=== PATIENT | male | born 1975 | race Caucasian/White ===

== ENCOUNTER 2018-05-27 08:28 | Emergency (ER) | payer BC ==
[~2018-05-27] VITALS: Ht 177.8 cm; Wt 93.6 kg
[~2018-05-27 08:28] MED LIST: AZIT250T PO; BENZ-6 PO; IBUP-1542 PO
[2018-05-27 08:38] VITALS: Ht 177.8 cm; Wt 93.6 kg
[2018-05-27] MEDS ORDERED: NITROGLYCERIN 2% 1 GM OINT PKT TD STA (09:49)
[2018-05-27] MEDS ORDERED: ASPI81TA52 PO (10:21)
--- NOTE | 2018-05-27 10:32 | ERD ---
ER Documentation Chief Complaint Chief Complaint Complains of chest pain since this am HPI This a 42-year-old male with a history of prediabetes who is had 1 month of chest pain. He initially described the chest pain as a central left sharp and then will become a squeezing type feeling that would last about 10 seconds and go away. He saw his primary care physician who arranged cardiology follow-up however he still waiting for authorization. The patient is here because he said the chest pain is getting more frequent and stronger. He says over the past 2 days happening for 5 times a day described as initial sharp pain and it becomes a squeezing-like pain with very slight shortness of breath. He has no nausea no diaphoresis, the pain will occur at rest. Denies family history of heart disease. Denies smoking. ROS All systems reviewed and are negative except as per history of present illness. Medications Home Meds Reported Medications Aspirin (Low Dose Aspirin) 81 Mg Tablet.dr, 81 MG PO DAILY, #30 TAB 05/27/18 Discontinued Reported Medications [none] No Conflict Check 02/18/10 Discontinued Scripts Benzonatate* (Tessalon Perle*) 100 Mg Capsule, 100 MG PO Q8H PRN for COUGH, #20 CAP Prov:PATRICK GLOVER PA-C 10/19/16 Ibuprofen* (Motrin*) 600 Mg Tab, 600 MG PO Q6, #30 TAB Prov:PATRICK GLOVER PA-C 10/19/16 Azithromycin* (Zithromax*) 250 Mg Tablet, 250 MG PO .ZPACK DIRECTED, #6 TAB TAKE 500 MG (2 TABS) THE FIRST DAY THEN 250 MG (1 TAB) DAYS 2-5 Prov:PATRICK GLOVER PA-C 10/19/16 Allergies Allergies: Coded Allergies: No Known Allergies (Verified Allergy, Mild, 05/27/18) PMhx/Soc Medical and Surgical Hx: pt denies Medical Hx, pt denies Surgical Hx History of Surgery: No Anesthesia Reaction: No Hx Neurological Disorder: No Hx Respiratory Disorders: No Hx Cardiac Disorders: No Hx Psychiatric Problems: No Hx Miscellaneous Medical Probl: No (NO OTHER MEDICAL PROBLEMS) Hx Alcohol Use: No Hx Substance Use: No Hx Tobacco Use: No Smoking Status: Never smoker FmHx Family History: No coronary disease Physical Exam Vitals Vital Signs Date Temp Pulse Resp B/P (MAP) Pulse Ox O2 O2 Flow FiO2 Time Delivery Rate 05/27/18 97.0 77 20 130/66 99 08:38 (87) Physical Exam Const: Well-developed, well-nourished Head: Atraumatic, normocephalic Eyes: Normal Conjunctiva, PERRLA, EOMI, normal sclera, no nystagmus ENT: Normal External Ears, Nose and Mouth, moist mucus membranes. Neck: Full range of motion. No meningismus, no lymphadenopathy. Resp: Clear to auscultation bilaterally, no wheezing, rhonchi, rales Cardio: Regular rate and rhythm, no murmurs, S1 S2 present Abd: Soft, non tender x 4, non distended. Normal bowel sounds, no guarding or rebound, no pulsitile abdominal masses or bruits Skin: No petechiae or rashes, no ecchymosis , no maculopapular rash Back: No midline or flank tenderness Ext: No cyanosis, or edema, FROM x 4, normal inspection, neurovascularly intact x 4 Neur: Awake and alert, STR 5/5 x 4, sensation intact x 4, no focal findings, cerebellum intact Psych: Normal Mood and Affect Result Diagram: 05/27/18 0959 05/27/18 0959 Results 24 hrs Laboratory Tests Test 05/27/18 09:59 White Blood Count 5.4 10^3/ul Red Blood Count 4.75 10^6/ul Hemoglobin 13.7 g/dl Hematocrit 41.7 % Mean Corpuscular Volume 87.8 fl Mean Corpuscular Hemoglobin 28.8 pg Mean Corpuscular Hemoglobin Concent 32.9 g/dl Red Cell Distribution Width 11.9 % Platelet Count 242 10^3/UL Mean Platelet Volume 10.1 fl Immature Granulocytes % 0.200 % Neutrophils % 55.6 % Lymphocytes % 24.6 % Monocytes % 14.3 % Eosinophils % 4.7 % Basophils % 0.6 % Nucleated Red Blood Cells % 0.0 /100WBC Immature Granulocytes # 0.010 10^3/ul Neutrophils # 3.0 10^3/ul Lymphocytes # 1.3 10^3/ul Monocytes # 0.8 10^3/ul Eosinophils # 0.3 10^3/ul Basophils # 0.0 10^3/ul Nucleated Red Blood Cells # 0.0 10^3/ul Sodium Level 143 mmol/L Potassium Level 4.3 mmol/L Chloride Level 108 mmol/L Carbon Dioxide Level 25 mmol/L Anion Gap 10 Blood Urea Nitrogen 19 mg/dl Creatinine 0.90 mg/dl Est Glomerular Filtrat Rate mL/min > 60 mL/min Glucose Level 96 mg/dl Calcium Level 9.1 mg/dl Total Bilirubin 0.3 mg/dl Direct Bilirubin 0.00 mg/dl Indirect Bilirubin 0.3 mg/dl Aspartate Amino Transf (AST/SGOT) 32 IU/L Alanine Aminotransferase (ALT/SGPT) 38 IU/L Alkaline Phosphatase 68 IU/L Troponin I < 0.012 ng/ml Total Protein 7.2 g/dl Albumin 4.5 g/dl Globulin 2.70 g/dl Albumin/Globulin Ratio 1.66 Current Medications Medications Dose Sig/Lance Start Time Status Last (Trade) Ordered Route PRN Stop Time Admin Dose Reason Admin 1 inch ONCE STAT 05/27/18 DC 05/27/18 Nitroglycerin TD 09:49 10:29 05/27/18 09:50 (Nitroglyceri n 2% Oint) Procedures/MDM Patient: MAX LOW : 1975 Age: 42 Sex: M MR #: [id number] DOS: 05/27/18 0949 Ordering MD: JAYASHREE REED DO Location: E/R Room/Bed: PROCEDURE: CHEST - 1 VIEW CLINICAL INDICATION: 42-year-old male with chest pain. TECHNIQUE: A single frontal AP semi-erect portable view of the chest was performed. The images were reviewed on a PACS workstation. COMPARISON: None. FINDINGS: The cardiomediastinal silhouette has a normal appearance. There is no evidence for an infiltrate. There is no evidence for congestive heart failure. There is no evidence for pneumothorax. The osseous structures are intact. IMPRESSION: No evidence for active cardiopulmonary disease. .Wander Chance MD, Date Time Electronically viewed and signed by .Wander Chance MD, on 05/27/2018 10:09 .M/ CC: JAYASHREE REED DO [id number] EKG: Rate/Rhythm: Normal Sinus Rhythm,NL intervals QRS, ST, QT: NORMAL IA, QRS, QT] Impression: NORMAL EKG Cardiac Admit MDM: Patient's symptoms are concerning for cardiac cause will require inpatient workup and continuous monitoring. Further w/u for ischemia, arrhythmia, PE or dissection will be deferred to the inpatient team. Departure Diagnosis: Primary Impression: Chest pain Chest pain type: unspecified Qualified Codes: R07.9 - Chest pain, unspecified Condition: Stable JAYASHREE REED DO May 27, 2018 10:32
--- NOTE | 2018-05-27 11:39 | PDOCDIS ---
Discharge Instructions CONDITION [id number] Patient Condition: [id number] Good HOME CARE INSTRUCTIONS: [id number] Diet Instructions: [id number] Regular ACTIVITY: [id number] Activity Restrictions: [id number] No Restrictions FOLLOW UP/APPOINTMENTS Follow-up Plan pcp 1 week GRADY GIRON MD May 27, 2018 11:39
[2018-05-27] MEDS ORDERED: ACETAMINOPHEN 325 MG TAB PO PRN (12:00)
[2018-05-27] MEDS ORDERED: ONDANSETRON 4 MG INJ IV PRN (12:00)
--- NOTE | 2018-05-27 12:22 | CONS ---
Assessment/Plan Assessment/Plan Hospital Course (Demo Recall) Chest pain Prediabetes as per history -Patient with chest discomfort lasting 10-20 seconds off and on for the past month. Initial cardiac enzymes are negative, ECG with no significant ischemic abnormalities -Symptoms atypical for cardiac in etiology, patient does have a history of prediabetes. We will plan for stress echocardiogram. Consultation Date/Type/Reason Admit Date/Time Type of Consult Cardiology Reason for Consultation Chest pain Date/Time of Note DATE: 05/27/18 TIME: 12:19 Hx of Present Illness This is a 42-year-old male with no significant past medical history who presents with chest pain. Symptoms have been off and on for 1 month. Pain is sharp and tight in nature lasting 10-20 seconds. The pain is not elicited with activity. He denies shortness of breath, diaphoresis or dizziness. Because of more frequent symptoms, he came to the emergency room for evaluation. Denies any fevers or chills. He does have a cough over the past few weeks and does have an members at home who have been ill with pneumonia and upper respiratory infections. 12 point review of systems was performed with all pertinent positives and negatives mentioned above and all else is negative Past Medical History Medical History: no pertinent history Home Meds Discontinued Reported Medications Aspirin (Low Dose Aspirin) 81 Mg Tablet., 81 MG PO DAILY, #30 TAB 05/27/18 [none] No Conflict Check 02/18/10 Discontinued Scripts Benzonatate* (Tessalon Perle*) 100 Mg Capsule, 100 MG PO Q8H PRN for COUGH, #20 CAP Prov:PATRICK GLOVER PA-C 10/19/16 Ibuprofen* (Motrin*) 600 Mg Tab, 600 MG PO Q6, #30 TAB Prov:PATRICK GLOVER PA-C 10/19/16 Azithromycin* (Zithromax*) 250 Mg Tablet, 250 MG PO .AnthonyPACK DIRECTED, #6 TAB TAKE 500 MG (2 TABS) THE FIRST DAY THEN 250 MG (1 TAB) DAYS 2-5 Prov:PATRICK GLOVER PA-C 10/19/16 Medications Current Medications Ondansetron HCl (Zofran Inj) 4 mg ER BRIDGE PRN IV NAUSEA/VOMITING; Start 05/27/18 at 12:00; Stop 05/28/18 at 11:59 Acetaminophen (Tylenol Tab) 650 mg ER BRIDGE PRN PO .MILD PAIN 1-3 OR TEMP; Start 05/27/18 at 12:00; Stop 05/28/18 at 11:59 Allergies: Coded Allergies: No Known Allergies (Verified Allergy, Mild, 05/27/18) Past Surgical History Past Surgical Hx: no surgical history Family History Significant Family History: no pertinent family hx Social History Alcohol Use: none Smoking Status: Never smoker 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 Exam/Review of Systems Vital Signs Vitals Vital Signs Date Temp Pulse Resp B/P (MAP) Pulse Ox O2 O2 Flow FiO2 Time Delivery Rate 05/27/18 76 17 103/70 100 Room Air 12:18 (81) 05/27/18 97.0 08:38 Exam Constitutional: alert, oriented, well developed (No apparent distress) Head: normocephalic Neck: supple Respiratory: clear to auscultation, normal air movement Cardiovascular: regular rate and rhythm (S1-S2 heard) Gastrointestinal: soft, non-tender, bowel sounds Extremities: other (No edema) Labs Result Diagram: 05/27/18 0959 05/27/18 0959 Results 24hrs Laboratory Tests Test 05/27/18 09:59 White Blood Count 5.4 Red Blood Count 4.75 Hemoglobin 13.7 L Hematocrit 41.7 L Mean Corpuscular Volume 87.8 Mean Corpuscular Hemoglobin 28.8 L Mean Corpuscular Hemoglobin Concent 32.9 Red Cell Distribution Width 11.9 Platelet Count 242 Mean Platelet Volume 10.1 Immature Granulocytes % 0.200 Neutrophils % 55.6 Lymphocytes % 24.6 Monocytes % 14.3 H Eosinophils % 4.7 Basophils % 0.6 Nucleated Red Blood Cells % 0.0 Immature Granulocytes # 0.010 Neutrophils # 3.0 Lymphocytes # 1.3 Monocytes # 0.8 Eosinophils # 0.3 Basophils # 0.0 Nucleated Red Blood Cells # 0.0 Sodium Level 143 Potassium Level 4.3 Chloride Level 108 Carbon Dioxide Level 25 Anion Gap 10 Blood Urea Nitrogen 19 Creatinine 0.90 Est Glomerular Filtrat Rate mL/min > 60 Glucose Level 96 Calcium Level 9.1 Total Bilirubin 0.3 Direct Bilirubin 0.00 Indirect Bilirubin 0.3 Aspartate Amino Transf (AST/SGOT) 32 Alanine Aminotransferase (ALT/SGPT) 38 Alkaline Phosphatase 68 Troponin I < 0.012 Total Protein 7.2 Albumin 4.5 Globulin 2.70 Albumin/Globulin Ratio 1.66 Imaging Imaging ECG with sinus rhythm, normal QRS duration, no significant ischemic ST abnormalities Medications Medications Current Medications Ondansetron HCl (Zofran Inj) 4 mg ER BRIDGE PRN IV NAUSEA/VOMITING; Start 05/27/18 at 12:00; Stop 05/28/18 at 11:59 Acetaminophen (Tylenol Tab) 650 mg ER BRIDGE PRN PO .MILD PAIN 1-3 OR TEMP; Start 05/27/18 at 12:00; Stop 05/28/18 at 11:59 Gavin Valenzuela DO May 27, 2018 12:22
--- NOTE | 2018-05-27 13:29 | EN ---
Date/Time of Note Date/Time of Note DATE: 05/27/18 TIME: 13:28 Event Note Cardiology Cardiology Event Note Stress treadmill echocardiogram Date of study 05/27/2018 Baseline ECG sinus rhythm, normal QRS duration, no significant ischemic ST abnormalities Patient exercised on Travis protocol for 12 minutes and 15 seconds. Maximum heart rate was 206 bpm which is 115% of max predicted heart rate. ECG with no significant ischemic ST abnormalities Patient stopped because of fatigue. No arrhythmias were noted ECG interpretation is nonischemic Gavin Valenzuela DO May 27, 2018 13:29
--- NOTE | 2018-05-27 13:36 | RADRPT ---
Stress Test Report Patient Name: Hali LOW ID: [id number] : 1975 (42y 9m)Study Date: 05/27/2018 12:33:30 PM Gender: MAccession #: [id number] Tech: Braulio Kennedy [facility] Location: Ref.Physician: GRADY GIRON Height(Cm): BSA: Weight(Kg): Quality: AdequateAccount #: Procedures: Stress Echo Report: Treadmill stress echocardiogram. Indications: Chest Pain. Findings: Stress Data: Protocol - Travis Protocol. Predicted Maximal HR - 179. Resting Echo Findings: Normal left ventricular size and systolic function with normal wall thickness at rest. Resting ECG: Normal EKG. Exercise Stress LV Function: Normal hyperdynamic contractile response with no inducible ischemia. Exercise ECG: Normal post exercise ECG. Reason for Termination: Fatigue. Functional Capacity: Above average exercise functional capacity. Blood Pressure Response: Normal blood pressure response. Arrhythmia: No exercise induced arrhythmias. Conclusions: Normal stress echocardiogram. Electronically Signed By: Gavin Valenzuela 2018-05-27 13:35:57 PDT
--- NOTE | 2018-05-27 13:51 | HP ---
DATE OF ADMISSION: 05/27/2018 CHIEF COMPLAINT: Chest pain on and off x1 month. HISTORY OF PRESENT ILLNESS: A 42-year-old male with prediabetes who presents to the Emergency Room with complaint of chest pain x1 month on and off. The pain is stabbing at times, but is squeezing at other times and lasting about 10 to 15 seconds. This is associated with shortness of breath. The patient has noted that the episodes of chest pain started getting more frequent and stronger. He denies any nausea, vomiting or diaphoresis. He denies exertional symptoms. Initial evaluation was unremarkable. Troponin was less than 0.012. IMAGING: EKG did not show any ST-T wave changes. SOCIAL HISTORY: Patient denies tobacco, alcohol use. PHYSICAL EXAMINATION: GENERAL: Well-developed, well-nourished male who is in no apparent distress. VITAL SIGNS: Stable. He is afebrile. HEENT: Extraocular muscles intact. Pupils equal and reactive to light bilaterally. Sclerae are anicteric. Oropharynx is clear and moist. NECK: Supple, no JVD, no carotid bruits. LUNGS: Clear to auscultation bilaterally. CARDIAC: Regular rate and rhythm. No murmurs or gallops. ABDOMEN: Soft, nontender, nondistended, normoactive bowel sounds. EXTREMITIES: No clubbing, cyanosis, or edema. NEUROLOGICAL: Nonfocal. ASSESSMENT: 1. A 42-year-old male with a 1-month history on and off chest pain. 2. Rule out coronary ischemia. PLAN: Place in tele observation. Proceed with stress echo. Dr. Valenzuela was notified of this admission. Dictated By: GRADY BRUSH/BRIANNA Conf#: [id number] DID#: [id number] MTDD
--- NOTE | 2018-05-27 13:52 | RADRPT ---
Echocardiogram Report Patient Name: Hali LOW ID: [id number] : 1975 (42y 9m)Study Date: 05/27/2018 12:33:30 PM Gender: MAccession #: [id number] Tech: Location: Ref.Physician: GAVIN VALENZUELA Height(Cm): BSA: Weight(Kg): Quality: AdequateAccount #: Procedures: Echocardiographic Report: Transthoracic echocardiogram with complete 2D, M-Mode, and doppler examination. Indications: Chest Pain. Measurements: 2D/M Mode Doppler Measurement Value Normal Range Measurement Value Normal Range LVIDd 2D 4.6 [ 4.2 - 5.8 ] cm AV Peak Sam 109.0 [ 100.0 - 170.0 ] cm/sec LVIDs 2D 2.8 [ 2.5 - 4.0 ] cm AV Peak PG 5.0 [ 2.0 - 9.0 ] mmHg LVPWd 2D 1.1 [ 0.6 - 1.0 ] cm LVOT Peak Sam 92.2 [ 70.0 - 110.0 ] cm/sec IVSd 2D 1.2 [ 0.6 - 1.0 ] cm LVOT Peak PG 3.0 [ 2.0 - 6.0 ] mmHg AoR Diam 2D 2.9 [ 2.6 - 3.4 ] cm MV E Peak Sam 74.7 [ 60.0 - 130.0 ] cm/sec LA Dimen 2D 3.3 [ 3.0 - 4.0 ] cm MV E Peak PG 2.0 mmHg MV A Peak Sam 52.4 [ 100.0 - 120.0 ] cm/sec MV A Peak PG 1.0 mmHg MV E/A 1.4 [ 0.8 - 1.5 ] ratio MV Decel Time 151 [ 104 - 258 ] msec Lat E` Sam 14.1 [ 10.0 - 15.0 ] cm/sec Lateral E/E` 5.3 [ 1.0 - 2.0 ] ratio TR Peak Sam 318.0 [ 100.0 - 280.0 ] cm/sec TR Peak PG 30.0 mmHg RVSP 33.0 [ 10.0 - 36.0 ] mmHg RA Pressure 3.0 mmHg Findings: Left Ventricle: Normal left ventricular systolic function. Normal left ventricular cavity size. Mild concentric left ventricular hypertrophy. Ejection fraction is visually estimated at 65 %. Tissue Doppler/Mitral Doppler indices are within normal limits. Right Ventricle: Normal right ventricular size. Normal right ventricular systolic function. Left Atrium: The left atrium is normal in size. Right Atrium: The right atrium is normal in size. Mitral Valve: Normal appearance and function of the mitral valve with trace physiologic regurgitation. Aortic Valve: Normal appearance of the aortic valve. No significant aortic stenosis or insufficiency. Tricuspid Valve: Normal appearance of the tricuspid valve. Estimated peak PA systolic pressure 33 mmHg. There is trace tricuspid regurgitation. Pulmonic Valve: Normal pulmonic valve appearance. Pericardium: Normal pericardium with no significant pericardial effusion. Aorta: Normal aortic root. IVC: Normal size and normal respiratory collapse consistent with normal right atrial pressure. Conclusions: Normal left ventricular systolic function. Normal left ventricular cavity size. Mild concentric left ventricular hypertrophy. Ejection fraction is visually estimated at 65 %. Tissue Doppler/Mitral Doppler indices are within normal limits. Normal right ventricular size. Normal right ventricular systolic function. The left atrium is normal in size. The right atrium is normal in size. No significant valvular stenosis or regurgitation seen. Normal pericardium with no significant pericardial effusion. Electronically Signed By: Gavin Valenzuela 2018-05-27 13:52:10 PDT
[2018-05-27 14:18] VITALS: BP 98/73; PULSE 98; RESP 18
--- NOTE | 2018-05-28 10:15 | DS ---
DATE OF ADMISSION: 05/27/2018 DATE OF DISCHARGE: 05/27/2018 DISCHARGE DIAGNOSES: 1. Atypical chest pain. 2. Normal stress echo. HOSPITAL COURSE: A 42-year-old male with prediabetes presented to emergency room with complaint of o n and off squeezing chest discomfort x1 month. The patient reported occasional shortness of breath. Initial EKG and troponin was unremarkable. He underwent a stress echo. There was no evidence of co ronary ischemia. The patient was discharged home in a stable condition. He was instructed to follow up with his primary care provider. Dictated By: GRADY BRUSH/NTS Conf#: [id number] DID#: [id number] CC: JAYASHREE REED DO;*End*
== END 2018-05-27 14:53 | disposition home or self-care (01) ==
LOC: E/R 08:28 → CANBEDREQ 13:48 → E/R 14:53
DX: R07.89 Other chest pain (principal)
CPT/HCPCS: 36415; 71045; 80053; 84484; 85025; 93005; 93306; 93350; 99285; Z7610